=== PATIENT | female | born 1960 ===

== ENCOUNTER 2021-04-23 11:15 | Inpatient (IN) | payer OTHER ==
[~2021-04-23] VITALS: Ht 152.4 cm; Wt 55.8 kg
[2021-05-03] MEDS ORDERED: SPIRONOLACTONE50 MG PO (15:15)
[2021-05-03] MEDS ORDERED: CLONAZEPAM1 M1 PO (15:15)
[2021-05-03] MEDS ORDERED: CRESTOR5 MG PO (15:15)
[2021-05-03] MEDS ORDERED: CARTIA XT120 MG PO (15:15)
[2021-05-03] MEDS ORDERED: PROGESTERONE200 MG PO (15:16)
[2021-05-03] MEDS ORDERED: WELLBUTRIN SR150 MG PO (15:16)
[2021-05-03] MEDS ORDERED: NEXIUM40 M1 PO (15:16)
[2021-05-03] MEDS ORDERED: DIM (15:17)
[2021-05-03] MEDS ORDERED: DYMISTA NASAL S23 GM (15:17)
[2021-05-07] MEDS ORDERED: DILTIAZEM ER120 M2 (08:28)
[2021-05-07] MEDS ORDERED: ESTRADIOL42.5 GM (08:29)
[2021-05-07] MEDS ORDERED: HYDROCORT-PRAMO30 G1 (08:29)
[2021-05-07] MEDS ORDERED: DIGOXIN125 MCG (08:29)
[2021-05-07] MEDS ORDERED: IPRATROPIUM BRO15 ML (08:31)
[2021-05-08] MEDS ORDERED: ULTRAM50 MG PO (07:53)
[2021-05-08] MEDS ORDERED: NEURONTIN300 MG PO (07:54)
== END 2021-05-08 21:23 | disposition home or self-care (01) | DRG 748 ==
LOC: SURH 05-07 05:40 → O/R 05-07 05:40 → SURH 05-07 07:00
PROVIDERS: ADMIT Surgery; ATTEND Surgery
PROC: 06LY7CC Occlusion of Hemorrhoidal Plexus with Extraluminal Device, Via Natural or Artificial Opening (ICD-10-PCS; 2021-05-07)
PROC: 3E0T3BZ Introduction of Anesthetic Agent into Peripheral Nerves and Plexi, Percutaneous Approach (ICD-10-PCS; 2021-05-07)
PROC: 3E0F7SF Introduction of Other Gas into Respiratory Tract, Via Natural or Artificial Opening (ICD-10-PCS; 2021-05-07)
PROC: 0JQC0ZZ Repair Pelvic Region Subcutaneous Tissue and Fascia, Open Approach (ICD-10-PCS; principal; 2021-05-07 07:00)
DX: N81.6 Rectocele (principal); K62.5 Hemorrhage of anus and rectum; K64.8 Other hemorrhoids; K59.02 Outlet dysfunction constipation; Z20.822 Contact with and (suspected) exposure to COVID-19; I10 Essential (primary) hypertension

== ENCOUNTER 2022-05-20 05:30 | Day surgery (SDC) | payer OTHER ==
[~2022-05-20] VITALS: Ht 152.4 cm; Wt 56.7 kg
[~2022-05-20 05:30] MED LIST: CARTIA XT120 MG PO; CLONAZEPAM1 M1 PO; CRESTOR5 MG PO; DIGOXIN125 MCG; DILTIAZEM ER120 M2; DIM; DYMISTA NASAL S23 GM; ESTRADIOL42.5 GM; HYDROCORT-PRAMO30 G1; IPRATROPIUM BRO15 ML; NEURONTIN300 MG PO; NEXIUM40 M1 PO; PROGESTERONE200 MG PO; SPIRONOLACTONE50 MG PO; ULTRAM50 MG PO; WELLBUTRIN SR150 MG PO
[2022-05-20] MEDS ORDERED: ULTRAM50 MG PO (08:54)
[2022-05-20] MEDS ORDERED: DERMOPLAST PAIN78 GM TOP (08:55)
[2022-05-20] MEDS ORDERED: NEURONTIN300 MG PO (08:55)
[2022-05-20] MEDS ORDERED: KETO10TA2 PO (08:55)
[2022-05-20] MEDS ORDERED: PROTONIX40 MG PO (12:29)
== END 2022-05-20 13:45 | disposition home or self-care (01) ==
LOC: CIR.AMB 05:30
PROVIDERS: ATTEND Surgery
DX: K64.8 Other hemorrhoids (principal); Z88.8 Allergy status to other drugs, medicaments and biological substances; I10 Essential (primary) hypertension